=== PATIENT | male | born 1935 | race Caucasian/White ===

== ENCOUNTER → 2016-12-08 | Outpatient (CLI) | payer MEDICARE, BC ==
[2016-12-08 15:23] LABS: CH 32.7; CHCM 34.9; HCT 42.7 % (39.0-53.0); HDW 3.01; HGB 14.6 gm/dL (13.0-17.5); MCH 32.3 pg (25.0-35.0); MCHC 34.2 g/dL (31.0-37.0); MCV 94.4 fL (80.0-100.0); Mean Platelet Volume 6.4; RBC 4.52 m/uL (4.30-5.90); RDW 13.5 % (11.5-15.5); WBC 8.2 k/uL (3.8-10.6)
[2016-12-08 15:38] LABS: Anion Gap 10 mmol/L; Blood Urea Nitrogen 23 mg/dL (9-20); Carbon Dioxide 24 mmol/L (22-30); Chloride 107 mmol/L (98-107); Non-African American GFR(MDRD) >60 (>60 ml/min/1.73 sqM); Potassium 4.1 mmol/L (3.5-5.1); Sodium 141 mmol/L (137-145)
== END | disposition home or self-care (01) ==
LOC: LABPAT 14:31
PROVIDERS: ATTEND Internal Medicine Interventional Cardiology
DX: Z01.812 Encounter for preprocedural laboratory examination (principal); I25.10 Atherosclerotic heart disease of native coronary artery without angina pectoris
CPT/HCPCS: 80051; 82565; 84520; 85027

== ENCOUNTER 2016-12-21 06:25 | Day surgery (SDC) | payer MEDICARE, BC ==
[2016-12-17 09:47] VITALS: BMI 33.6
[~2016-12-21 06:25] MED LIST: ALPRAZolam 0.25 MG TAB PO PRN; ALPRAZolam 0.5 MG TAB PO PRN; ASPIRIN 325 MG TAB PO STA; ATORVASTATIN 80 MG TAB PO STA; NITROGLYCERIN SL TABS 0.4 MG TAB SUBLINGUAL PRN; SODIUM CHLORIDE 0.9% 1,000 ML in EMPTY BAG 1 BAG IV ONE
[2016-12-21 07:14] VITALS: RESP 16; TEMP 98.4
[2016-12-21 07:17] LABS: Glucose,Whole Blood 163 mg/dL (75-99)
[2016-12-21] MEDS ORDERED: MIDAZOLAM 2 MG/2 ML VIAL IVP ONE (07:56)
[2016-12-21] MEDS ORDERED: diphenhydrAMINE 50 MG/ML 1 ML VIAL IVP ONE (07:56)
[2016-12-21] MEDS ORDERED: LIDOCAINE 2% INJ 20 MG/ML SQ ONE (07:59)
[2016-12-21] MEDS ORDERED: VERAPAMIL SYRINGE (5 MG/10 ML) INTRAARTER ONE (08:00)
[2016-12-21] MEDS ORDERED: HEPARIN SODIUM 1,000 UNIT/ML VIAL IV ONE (08:11)
[2016-12-21] MEDS ORDERED: IOHEXOL 350 MG/ML 125ML BOTTLE INJ ONE (08:24)
[2016-12-21] MEDS ORDERED: RX INFO: IV CONTRAST WAS GIVEN 1 EACH MISC MISCELLANE PRN (08:33)
[2016-12-21] MEDS ORDERED: MELOXICAM 7.5 MG TAB PO PRN (08:34)
[2016-12-21] MEDS ORDERED: LORATADINE 10 MG TAB PO PRN (08:34)
[2016-12-21] MEDS ORDERED: MECLIZINE 25 MG TAB PO PRN (08:34)
[2016-12-21] MEDS ORDERED: SODIUM CHLORIDE 0.9% 1,000 ML IV SCH (08:45)
[2016-12-21] MEDS ORDERED: LISINOPRIL 10 MG TAB PO SCH (09:00)
[2016-12-21] MEDS ORDERED: GLUCOSAMINE PO SCH (09:00)
[2016-12-21] MEDS ORDERED: OMEGA PO SCH (09:00)
[2016-12-21] MEDS ORDERED: DHA PO SCH (09:00)
[2016-12-21] MEDS ORDERED: NON-FORMULARY DRUG (Tolterodine Tartrate [Detrol La] 4 MG) PO SCH (09:00)
[2016-12-21] MEDS ORDERED: GLIMEPIRIDE 2 MG TAB PO ONE (09:00)
[2016-12-21] MEDS ORDERED: EPA PO SCH (09:00)
[2016-12-21] MEDS ORDERED: LEVOTHYROXINE 100 MCG TAB PO SCH (09:00)
[2016-12-21] MEDS ORDERED: ASPIRIN 81 MG CHEW PO SCH (09:00)
[2016-12-21] MEDS ORDERED: MULTIVITAMIN PO SCH (09:00)
[2016-12-21] MEDS ORDERED: FISH OIL PO SCH (09:00)
[2016-12-21] MEDS ORDERED: ATENOLOL 25 MG TAB PO SCH (09:00)
[2016-12-21 09:10] LABS: Glucose,Whole Blood 146 mg/dL (75-99)
[2016-12-21 13:15] VITALS: BP 147/81; PULSE 62
[2016-12-21] MEDS ORDERED: TAMSULOSIN 0.4 MG CAP.ER.24H PO SCH (21:00)
[2016-12-21] MEDS ORDERED: ATORVASTATIN 80 MG TAB PO SCH (21:00)
[2016-12-22] MEDS ORDERED: GLIMEPIRIDE 2 MG TAB PO SCH (09:00)
--- NOTE | 2016-12-23 06:56 | PCN ---
CARDIAC CATHETERIZATION Mr. Amin is a 81-year-old male with known history of hypertension, hyperlipidemia, diabetes mellitus who has been complaining of episode of progressive dyspnea, had a myocardial perfusion imaging that revealed evidence of inducible ischemia. He was evaluated by Dr. Pineda and recommendation was made regarding cardiac catheterization. The procedure as well a the risks and the complications were discussed with the patient who is in full understanding and agreement. PROCEDURE: The patient was brought to the public works laborer in a fasting semi-sedated state after receiving fentanyl and Benadryl and achieved moderate conscious sedated state. Using Xylocaine anesthesia and Seldinger technique, a 6 [place] sheath was introduced in the right radial artery. Selective right and left coronary angiography performed using 5 [place], 3-1/2 Bend right Eugene catheter and a 6 [place] Robert catheter. Images of the coronary arteries were obtained. Following that, a 6 [place] tight pigtail catheter was introduced in the left ventricle and a 30-degree JOSE view of the left ventricle was obtained. Following that, catheter and sheath were removed. Hemostasis was obtained with deployment of a TR band. There was no immediate complication. The patient was returned to his room in stable condition. Of note, the patient received 5000 units of intravenous heparin as well as intra-arterial verapamil. The left main was subselectively cannulated. FINDINGS: FLUOROSCOPY: There is calcification involving the left main as well as the LAD and left circumflex. LEFT MAIN: This is a short size vessel, bifurcating into left circumflex and left anterior descending artery. Left main coronary artery is without any significant obstructive disease. LEFT ANTERIOR DESCENDING ARTERY: This is a large size vessel reaching towards the apex with a wrap around apex segment giving rise to a diagonal branch. The left anterior descending artery has 10% to 20% plaque proximally without any evidence of high grade stenosis. LEFT CIRCUMFLEX: This is a nondominant vessel giving rise to 2 obtuse marginal branches. The left circumflex proximally has a 10% to 20% plaque. The rest of the vessel has no high grade stenosis. RIGHT CORONARY ARTERY: This is a dominant moderate to small caliber size vessel giving rise to PDA distally. The right coronary artery and its branches have no evidence of obstructive coronary artery disease. LEFT VENTRICULOGRAM: Left ventriculogram was performed in 30-degree JOSE view and revealed normal left ventricular size and systolic function. Ejection fraction is 60% with no significant mitral regurgitation. HEMODYNAMICS: There was no gradient across the aortic valve. The left ventricular end-diastolic pressure was 20 mmHg. CONCLUSION: 1. Calcified left main, left anterior descending artery and proximal left circumflex. 2. Mild disease in the left anterior descending artery and left circumflex. 3. Normal left ventricular systolic size and systolic function. RECOMMENDATIONS: In view of finding anatomy, I recommended continuing medical therapy with aggressive coronary risk modification has been initiated. Those findings and recommendations were discussed with the patient and his family and a full understanding agreement. Duration of procedure is 29 minutes. MTDD
--- NOTE | 2016-12-23 07:03 | MISC ---
LETTER Dear Dr. Rodriguez: I had the opportunity to perform cardiac catheterization on Mr. Amin at [facility] on the 21 of December and a full copy of the procedure note will be forwarded to you. In brief, he was found to have mild coronary artery disease with preserved systolic function and based on those findings, I recommended continued medical therapy with aggressive coronary risk modification to be initiated and thank you again for allowing me the opportunity to participate in his care. Please feel free to call for any questions. Sincerely yours, MD INGRID Rabago
== END 2016-12-21 13:26 | disposition home or self-care (01) ==
LOC: CATHCVL 06:25
PROVIDERS: ATTEND Internal Medicine Interventional Cardiology
DX: I25.10 Atherosclerotic heart disease of native coronary artery without angina pectoris (principal); R94.39 Abnormal result of other cardiovascular function study; R06.02 Shortness of breath; I10 Essential (primary) hypertension; E78.5 Hyperlipidemia, unspecified; E11.9 Type 2 diabetes mellitus without complications; G47.33 Obstructive sleep apnea (adult) (pediatric); Z79.84 Long term (current) use of oral hypoglycemic drugs; Z79.82 Long term (current) use of aspirin; Z79.899 Other long term (current) drug therapy; Z88.5 Allergy status to narcotic agent; Z87.891 Personal history of nicotine dependence; E78.00 Pure hypercholesterolemia, unspecified
CPT/HCPCS: 93458; 99152; 99153; C1769 ×2; C1894; J2001; J2250; J1200; J1644; Q9967

== ENCOUNTER 2018-02-07 10:48 | Emergency (ER) | payer MEDICARE, BC ==
[2018-02-07 11:29] VITALS: TEMP 98
[2018-02-07] MEDS ORDERED: ACETAMINOPHEN TAB 500 MG TAB PO STA (11:46)
--- NOTE | 2018-02-07 12:06 | XR ---
EXAMINATION TYPE: XR knee complete LT DATE OF EXAM: 02/07/2018 CLINICAL HISTORY: Acute on the left knee pain TECHNIQUE: Three views of the left knee are obtained. COMPARISON: None. FINDINGS: There is no acute fracture/dislocation evident in left knee. Metallic hardware from total left knee arthroplasty is identified. Alignment is felt satisfactory. Some patellofemoral joint space narrowing is seen with superior and inferior marginal osteophytes. The overlying soft tissue appears unremarkable. IMPRESSION: As above.
--- NOTE | 2018-02-07 12:28 | ED ---
General Adult HPI - General Source: patient Mode of arrival: wheelchair Limitations: no limitations <Bret Downs - Last Filed: 02/07/18 12:28> <Everette Read - Last Filed: 02/07/18 12:53> - General Chief complaint: Extremity Problem,Nontraumatic Stated complaint: left leg & knee pain Time Seen by Provider: 02/07/18 11:26 - History of Present Illness Initial comments: 82-year-old male presents to the emergency department for a chief complaint of left knee pain 3 weeks. Patient states he does have a history of the knee replacement about 20 years ago. Patient denies any injury to the left knee in the past 3 weeks. Patient states he is able to walk on it but it is somewhat painful. Patient states he has not been taking Motrin or Tylenol because a previous doctor had told him not to take these medications. This was because patient was having neck pain and was overusing the neck due to effectiveness of pain medications. Patient is not experiencing neck pain at this time. Patient denies any pain in the calf. Patient denies any history of blood clots. Patient has no other complaints at this time including fever, shortness of breath, chest pain, abdominal pain, nausea or vomiting, headache, or visual changes. (Bret Downs) - Related Data Home Medications Medication Instructions Recorded Confirmed Aspirin 81 mg PO BID 09/17/15 02/07/18 Glimepiride [Amaryl] 2 mg PO QAM 09/17/15 02/07/18 Levothyroxine Sodium [Synthroid] 100 mcg PO QAM 09/17/15 02/07/18 Lisinopril [Zestril] 20 mg PO DAILY 09/17/15 02/07/18 Meloxicam 15 mg PO DAILY PRN 09/17/15 02/07/18 Tamsulosin [Flomax] 0.8 mg PO HS 09/17/15 02/07/18 Meclizine [Antivert] 25 mg PO TID PRN 12/17/16 02/07/18 Multivitamin [Multiple Vitamins] 1 each PO DAILY 12/17/16 02/07/18 Albuterol Inhaler [Ventolin Hfa 1 - 2 puff INHALATION RT-Q6H PRN 02/07/18 Inhaler] Atorvastatin Calcium [Lipitor] 40 mg PO HS 02/07/18 02/07/18 Baclofen [Lioresal] 10 mg PO DAILY 02/07/18 02/07/18 Baclofen [Lioresal] 20 mg PO HS 02/07/18 02/07/18 Flex-A-Min 1 tab PO DAILY 02/07/18 02/07/18 Ibuprofen [Motrin Ib] 400 mg PO Q6HR PRN 02/07/18 02/07/18 Lidocaine HCl [Aspercreme] 1 applic TOPICAL DAILY PRN 02/07/18 02/07/18 Metoprolol Succinate [Toprol XL] 50 mg PO DAILY 02/07/18 02/07/18 Allergies Allergy/AdvReac Type Severity Reaction Status Date / Time morphine AdvReac Nausea & Verified 02/07/18 12:17 Vomiting Review of Systems ROS Other: All systems not noted in ROS Statement are negative. <Bret Downs - Last Filed: 02/07/18 12:28> ROS Other: All systems not noted in ROS Statement are negative. <Everette Read - Last Filed: 02/07/18 12:53> ROS Statement: Those systems with pertinent positive or pertinent negative responses have been documented in the HPI. Past Medical History Past Medical History: Cancer, Diabetes Mellitus, Deep Vein Thrombosis (DVT), GERD/Reflux, Hearing Disorder / Deafness, Hyperlipidemia, Hypertension, Osteoarthritis (OA), Sleep Apnea/CPAP/BIPAP, Thyroid Disorder, Vascular Disorder Additional Past Medical History / Comment(s): Hx prostate cancer, emphysemia, sob, seasonal allergies, "blood clot in right leg after a fall 2 yrs ago that was lanced." "Wears knee high TEDS most days." History of Any Multi-Drug Resistant Organisms: None Reported Past Surgical History: Heart Catheterization, Joint Replacement Additional Past Surgical History / Comment(s): Bilateral knee replacements, spleen, prostate, bilateral vein stripping in legs. Past Anesthesia/Blood Transfusion Reactions: Postoperative Nausea & Vomiting ( PONV) Past Psychological History: No Psychological Hx Reported Smoking Status: Never smoker Past Alcohol Use History: None Reported Past Drug Use History: None Reported - Past Family History Mother Family Medical History: Unable to Obtain Father Family Medical History: Unable to Obtain <Bret Downs - Last Filed: 02/07/18 12:28> General Exam Limitations: no limitations General appearance: alert, in no apparent distress Head exam: Present: atraumatic, normocephalic, normal inspection Eye exam: Present: normal appearance. Absent: scleral icterus, conjunctival injection ENT exam: Present: normal exam, mucous membranes moist Neck exam: Present: normal inspection. Absent: tenderness, meningismus, lymphadenopathy Respiratory exam: Present: normal lung sounds bilaterally. Absent: respiratory distress, wheezes, rales, rhonchi, stridor Cardiovascular Exam: Present: regular rate, normal rhythm, normal heart sounds. Absent: systolic murmur, diastolic murmur, rubs, gallop, clicks Extremities exam: Present: full ROM (Full range of motion of the left knee including flexion and extension.), tenderness (Patient has mild tenderness over the anterior left knee.), normal capillary refill (Capillary refill less than 2 seconds and pedal and PT pulses 2+.), other (There is an old healed scar over the left knee. Sensation intact in the left lower extremity.). Absent: pedal edema, joint swelling, calf tenderness (No tenderness in the left calf. Negative Homans sign. No erythema, edema, or increased warmth in the left calf. ) Neurological exam: Present: alert, oriented X3, CN II-XII intact Psychiatric exam: Present: normal affect, normal mood <Bret Downs - Last Filed: 02/07/18 12:28> Course <Bret Downs - Last Filed: 02/07/18 12:28> <Everette Read - Last Filed: 02/07/18 12:53> Vital Signs 02/07/18 02/07/18 11:26 12:41 Temperature 98 F 98 F Pulse Rate 78 71 Respiratory 18 16 Rate Blood Pressure 136/86 132/80 O2 Sat by Pulse 92 L 98 Oximetry - Reevaluation(s) Reevaluation #1: 02/07/18 12:53 PA supervision: I personally saw and examined the patient. I have reviewed and agree with the PE findings including all diagnostic interpretations and treatment plans is written unless otherwise stated. (Everette Read) Medical Decision Making <Bret Downs - Last Filed: 02/07/18 12:28> <Everette Read - Last Filed: 02/07/18 12:53> - Medical Decision Making 82-year-old male presents to the emergency department for chief complaint of left knee pain 3 weeks. Patient has a history of knee replacement about 20 years ago. Patient states he has extensive history of osteoarthritis. Patient has not been taking anything for pain. Patient is able to walk on it but is limping somewhat. On exam patient has full range of motion of the left knee, no increased warmth or erythema to the left knee. No evidence of infection at this time. Neurovascular intact in the left lower extremity. Patient was given Tylenol and ice in the emergency department which did help with his pain. Patient is likely experiencing chronic changes in the left knee causing the pain. He is to follow-up with orthopedics in one to 2 days. I did give him his previous orthopedic doctor's number as well as additional on-call orthopedist's. He will take Tylenol for pain but will clear this with his primary care provider first. He will return to the emergency department if he has any worsening symptoms. Dr Read also saw this patient. (Bret Downs) Disposition Is patient prescribed a controlled substance at d/c from ED?: No Time of Disposition: 12:26 <Bret Downs - Last Filed: 02/07/18 12:28> <Everette Read - Last Filed: 02/07/18 12:53> Clinical Impression: Knee pain, left Disposition: HOME SELF-CARE Condition: Good Instructions: Knee Pain (ED), Arthralgia (ED) Additional Instructions: Please take tylenol over the counter for pain. Please rest, ice, and elevate the left knee. Follow up with orthopedics in 1-2 days. Return to the emergency department if you have any worsening symptoms. Referrals: Brianne Rodriguez III, MD [Primary Care Provider] - 1-2 days Chilo Amador MD [REFERRING] - 1-2 days Nahun Jo DO [Doctor of Osteopathic Medicine] - 1-2 days Addendum entered and electronically signed by Bret Downs, PAStevenC 02/07/18 12 :36: X-ray of the left knee shows no acute fracture or dislocation evident. Metallic hardware from total left knee arthroplasty is identified. Alignment is satisfactory. Patellofemoral joint space narrowing
[2018-02-07 12:42] VITALS: BP 132/80; PULSE 71; RESP 16
== END 2018-02-07 12:41 | disposition home or self-care (01) ==
LOC: EC 10:48
DX: M25.562 Pain in left knee (principal); E11.9 Type 2 diabetes mellitus without complications; E78.5 Hyperlipidemia, unspecified; I10 Essential (primary) hypertension; K21.9 Gastro-esophageal reflux disease without esophagitis; M19.90 Unspecified osteoarthritis, unspecified site; G47.30 Sleep apnea, unspecified; Z99.89 Dependence on other enabling machines and devices; E07.9 Disorder of thyroid, unspecified; H91.90 Unspecified hearing loss, unspecified ear; Z86.718 Personal history of other venous thrombosis and embolism; Z85.46 Personal history of malignant neoplasm of prostate; Z79.82 Long term (current) use of aspirin; Z79.1 Long term (current) use of non-steroidal anti-inflammatories (NSAID); Z79.84 Long term (current) use of oral hypoglycemic drugs; Z79.899 Other long term (current) drug therapy; Z88.5 Allergy status to narcotic agent; Z96.653 Presence of artificial knee joint, bilateral; Z95.818 Presence of other cardiac implants and grafts
CPT/HCPCS: 99283

== ENCOUNTER 2018-10-12 15:41 | Emergency (ER) | payer MEDICARE, BC ==
[2018-10-12 16:10] VITALS: RESP 18
--- NOTE | 2018-10-12 16:29 | ED ---
Male Urogenital HPI - General Chief complaint: Urogenital Stated complaint: unable to urinate post catheter Time Seen by Provider: 10/12/18 16:15 Source: patient Mode of arrival: ambulatory Limitations: no limitations - History of Present Illness Initial comments: 83-year-old male presenting today for chief complaint of inability to urinate. Patient states he has had prostate cancer in the past. Patient states he felt a small amount of active cancer as well as prostate scarring. Patient states he had trouble starting the stream and he presented to Dr. Goodman a few weeks prior. He states he had a recent procedure to break up the scar tissue preventing him proper urination and had the catheter removed yesterday. Patient states he was able to urinate spontaneously however around 2 AM this morning he noticed every time he tried to urinate he was unable to. Patient denies any abdominal pain or discomfort denies any back or flank pain. Patient denies fever or chills night sweats. When patient was unable to urinate later this afternoon he presented to the emergency department for further evaluation. Upon arrival patient denies pain he appears well and nontoxic. Remaining review of system negative, Patient denies any recent shortness of breath, chest pain, back pain, abdominal pain, nausea or vomiting, numbness or tingling, dysuria or hematuria, constipation or diarrhea, headaches or visual changes, or any other complaints. - Related Data Home Medications Medication Instructions Recorded Confirmed Aspirin 162 mg PO DAILY 09/17/15 10/12/18 Glimepiride [Amaryl] 2 mg PO BID 09/17/15 10/12/18 Levothyroxine Sodium [Synthroid] 100 mcg PO DAILY 09/17/15 10/12/18 Lisinopril [Zestril] 20 mg PO DAILY 09/17/15 10/12/18 Meloxicam 15 mg PO DAILY 09/17/15 10/12/18 Tamsulosin [Flomax] 0.8 mg PO HS 09/17/15 10/12/18 Meclizine [Antivert] 25 mg PO TID PRN 12/17/16 10/12/18 Multivitamin [Multiple Vitamins] 1 tab PO DAILY 12/17/16 10/12/18 Albuterol Inhaler [Ventolin Hfa 1 - 2 puff INHALATION RT-Q6H PRN 02/07/18 10/12/18 Inhaler] Atorvastatin Calcium [Lipitor] 40 mg PO HS 02/07/18 10/12/18 Baclofen [Lioresal] 10 mg PO DAILY 02/07/18 10/12/18 Baclofen [Lioresal] 20 mg PO HS 02/07/18 10/12/18 Flex-A-Min 1 tab PO DAILY 02/07/18 10/12/18 Metoprolol Succinate [Toprol XL] 50 mg PO DAILY 02/07/18 10/12/18 Bicalutamide [Casodex] 50 mg PO DAILY 10/12/18 10/12/18 Gabapentin [Neurontin] 300 mg PO BID 10/12/18 10/12/18 sitaGLIPtin [Januvia] 100 mg PO DAILY 10/12/18 10/12/18 Allergies Allergy/AdvReac Type Severity Reaction Status Date / Time morphine AdvReac Nausea & Verified 10/12/18 16:47 Vomiting Review of Systems ROS Statement: Those systems with pertinent positive or pertinent negative responses have been documented in the HPI. ROS Other: All systems not noted in ROS Statement are negative. Past Medical History Past Medical History: Cancer, Diabetes Mellitus, Deep Vein Thrombosis (DVT), GERD/Reflux, Hearing Disorder / Deafness, Hyperlipidemia, Hypertension, Osteoarthritis (OA), Sleep Apnea/CPAP/BIPAP, Thyroid Disorder, Vascular Disorder Additional Past Medical History / Comment(s): Hx prostate cancer, emphysemia, sob, seasonal allergies, "blood clot in right leg after a fall 2 yrs ago that was lanced." "Wears knee high TEDS most days." History of Any Multi-Drug Resistant Organisms: None Reported Past Surgical History: Heart Catheterization, Joint Replacement Additional Past Surgical History / Comment(s): Bilateral knee replacements, spleen, prostate, bilateral vein stripping in legs. Past Anesthesia/Blood Transfusion Reactions: Postoperative Nausea & Vomiting (PONV) Past Psychological History: No Psychological Hx Reported Smoking Status: Never smoker Past Alcohol Use History: None Reported Past Drug Use History: None Reported - Past Family History Mother Family Medical History: Unable to Obtain Father Family Medical History: Unable to Obtain General Exam - General Exam Comments Initial Comments: General: The patient is awake and alert, in no distress, and does not appear acutely ill. Eye: Pupils are equal, round and reactive to light, extra-ocular movements are intact. No nystagmus. There is normal conjunctiva bilaterally. No signs of icterus. Ears, nose, mouth and throat: There are moist mucous membranes and no oral lesions. Neck: The neck is supple, there is no tenderness or JVD. Cardiovascular: There is a regular rate and rhythm. No murmur, rub or gallop is appreciated. Respiratory: Lungs are clear to auscultation, respirations are non-labored, breath sounds are equal. No wheezes, stridor, rales, or rhonchi. Gastrointestinal: Soft, non-distended, non-tender abdomen without masses or organomegaly noted. There is no rebound or guarding present. No CVA tenderness. Bowel sounds are unremarkable. Musculoskeletal: Normal ROM, no tenderness. Strength 5/5. Sensation intact. Radial pulses equal bilaterally 2+. Neurological: A&O x 3. CN II-XII intact, There are no obvious motor or sensory deficits. Coordination appears grossly intact. Speech is normal. Skin: Skin is warm and dry and no rashes or lesions are noted. Psychiatric: Cooperative, appropriate mood & affect, normal judgment. Limitations: no limitations Course Vital Signs 10/12/18 16:09 Temperature 99.1 F Pulse Rate 90 Respiratory 18 Rate Blood Pressure 123/72 O2 Sat by Pulse 92 L Oximetry Medical Decision Making - Medical Decision Making Post residual void 500 mL. Patient has known prostate scarring. Catheter was placed. Urine light yellow no sediment, gross hematuria. Patient has no complaints no abdominal pain. Patient will be discharged with Das catheter and follow-up with Dr. Goodman urology. Discussed case attempt by her doctor Dia agreeable patient care plan and discharge. Patient is agreeable discharge, and aware of catheter care. Disposition Clinical Impression: Urinary retention Disposition: HOME SELF-CARE Condition: Good Instructions (If sedation given, give patient instructions): Urinary Retention in Men (ED) Additional Instructions: Please use medication as discussed. Please follow-up with Dr. Goodman in the next 2-3 days. Please return to emergency room if the symptoms increase or worsen or for any other concerns. Is patient prescribed a controlled substance at d/c from ED?: No Referrals: Brianne Rodriguez III, MD [Primary Care Provider] - 1-2 days Paul Yeboah MD [STAFF PHYSICIAN] - 1-2 days Time of Disposition: 18:09
[2018-10-12 19:29] VITALS: BP 100/68; PULSE 92; TEMP 98.6
== END 2018-10-12 18:30 | disposition home or self-care (01) ==
LOC: EC 15:41
DX: R33.9 Retention of urine, unspecified (principal); E11.9 Type 2 diabetes mellitus without complications; E78.5 Hyperlipidemia, unspecified; I10 Essential (primary) hypertension; E07.9 Disorder of thyroid, unspecified; M19.90 Unspecified osteoarthritis, unspecified site; G47.30 Sleep apnea, unspecified; Z99.89 Dependence on other enabling machines and devices; Z85.46 Personal history of malignant neoplasm of prostate; Z95.818 Presence of other cardiac implants and grafts; Z96.653 Presence of artificial knee joint, bilateral; Z79.82 Long term (current) use of aspirin; Z79.84 Long term (current) use of oral hypoglycemic drugs; Z79.890 Hormone replacement therapy; Z79.1 Long term (current) use of non-steroidal anti-inflammatories (NSAID); Z79.899 Other long term (current) drug therapy; Z88.5 Allergy status to narcotic agent
CPT/HCPCS: 51702; 51798; 99283

== ENCOUNTER → 2019-05-30 | Outpatient (CLI) | payer MEDICARE, BC ==
[2019-05-30 14:20] LABS: Basophils % (A) 1 %; Eosinophils # (A) 0.4 k/uL (0-0.7); Eosinophils % (A) 5 %; HCT 42.7 % (39.0-53.0); HGB 14.2 gm/dL (13.0-17.5); Lymphocytes # (A) 2.1 k/uL (1.0-4.8); Lymphocytes % (A) 27 %; MCH 32.4 pg (25.0-35.0); MCHC 33.3 g/dL (31.0-37.0); MCV 97.3 fL (80.0-100.0); Mean Platelet Volume 6.1; Monocytes # (A) 0.5 k/uL (0-1.0); Monocytes % (A) 6 %; Neutrophils # (A) 4.5 k/uL (1.3-7.7); Neutrophils % (A) 57 %; Platelet Count 249 k/uL (150-450); RBC 4.39 m/uL (4.30-5.90); RDW 12.7 % (11.5-15.5); WBC 7.8 k/uL (3.8-10.6)
[2019-05-30 14:34] LABS: Calcium 9.5 mg/dL (8.4-10.2); Potassium 4.4 mmol/L (3.5-5.1); Total Bilirubin 0.7 mg/dL (0.2-1.3); Total Protein 7.1 g/dL (6.3-8.2)
== END ==
LOC: LABPAT 13:28
PROVIDERS: ATTEND Urology
DX: Z01.812 Encounter for preprocedural laboratory examination (principal); N39.3 Stress incontinence (female) (male)
CPT/HCPCS: 80053; 85025; 87086

== ENCOUNTER 2019-06-06 08:25 | Day surgery (SDC) | payer MEDICARE, BC ==
[2019-06-04 15:31] VITALS: BMI 35.0
--- NOTE | 2019-06-05 20:03 | P.GSHP ---
History of Present Illness H&P Date: 06/05/19 83 yo male comes for a male urethral sphincter for kim He had an open radical prostatectomy in 2004 [id number] He had a recurrence treated with ebrt [id number] He subsequently had had lhrh therapy on an intermittent basis.. Over the last few years he has developed increasing incontinence that has failed kegal exercises, anti cholinergics, muscarinics He underwent an evaluation that identified 6ppd kim He comes for a gu sphincter The risks and complications have been discussed inluding injury to the urethra, failure, infection apin and bleeding. - Constitutional Constitutional: Denies chills, Denies fever - EENT Eyes: denies blurred vision, denies pain Ears, nose, mouth and throat: Denies headache, Denies sore throat - Cardiovascular Cardiovascular: Denies chest pain, Denies shortness of breath - Respiratory Respiratory: Denies cough, Denies 7 - Gastrointestinal Gastrointestinal: Denies abdominal pain, Denies diarrhea, Denies nausea, Denies vomiting - Genitourinary (Female) Genitourinary: Denies dysuria, Denies hematuria - Genitourinary (Male) Genitourinary: Denies dysuria, Denies hematuria - Musculoskeletal Musculoskeletal: Denies myalgias - Integumentary Integumentary: Denies pruritus, Denies rash - Neurological Neurological: Denies numbness, Denies weakness - Psychiatric Psychiatric: Denies anxiety, Denies depression - Endocrine Endocrine: Denies fatigue, Denies weight change Past Medical History Past Medical History: Cancer, Diabetes Mellitus, Deep Vein Thrombosis (DVT), GERD/Reflux, Hearing Disorder / Deafness, Hyperlipidemia, Hypertension, Osteoarthritis (OA), Sleep Apnea/CPAP/BIPAP, Thyroid Disorder, Vascular Disorder Additional Past Medical History / Comment(s): urinary incontinence, left wrist pre CA cells removed, has scab, Hx prostate cancer, radiation in 2018, sob, seasonal allergies, "blood clot in right leg after a fall 2 yrs ago that was lanced." "Wears knee high TEDS most days." History of Any Multi-Drug Resistant Organisms: None Reported Past Surgical History: Heart Catheterization, Joint Replacement Additional Past Surgical History / Comment(s): Bilateral knee replacements, spleen, prostate, bilateral vein stripping in legs. Past Anesthesia/Blood Transfusion Reactions: Postoperative Nausea & Vomiting (PONV) Smoking Status: Former smoker - Past Family History Mother Family Medical History: Unable to Obtain Father Family Medical History: Unable to Obtain Medications and Allergies Home Medications Medication Instructions Recorded Confirmed Type Aspirin 162 mg PO DAILY 09/17/15 06/04/19 History Glimepiride [Amaryl] 2 mg PO BID 09/17/15 06/04/19 History Levothyroxine Sodium [Synthroid] 100 mcg PO DAILY 09/17/15 06/04/19 History Lisinopril [Zestril] 20 mg PO QAM 09/17/15 06/04/19 History Meloxicam 15 mg PO DAILY PRN 09/17/15 06/04/19 History Meclizine [Antivert] 25 mg PO TID PRN 12/17/16 06/04/19 History Multivitamin [Multiple Vitamins] 1 tab PO DAILY 12/17/16 06/04/19 History Albuterol Inhaler [Ventolin Hfa 1 - 2 puff INHALATION RT-Q6H PRN 02/07/18 06/04/19 History Inhaler] Atorvastatin Calcium [Lipitor] 40 mg PO HS 02/07/18 06/04/19 History Flex-A-Min 1 tab PO DAILY 02/07/18 06/04/19 History Metoprolol Succinate [Toprol XL] 50 mg PO DAILY 02/07/18 06/04/19 History Bicalutamide [Casodex] 50 mg PO HS 10/12/18 06/04/19 History Gabapentin [Neurontin] 300 mg PO BID PRN 10/12/18 06/04/19 History sitaGLIPtin [Januvia] 100 mg PO DAILY 10/12/18 06/04/19 History Butalb/Acetaminophen/Caffeine 1 - 2 cap PO Q4HR PRN 06/04/19 06/04/19 History [Fioricet 50-300-40 mg Capsule] Allergies Allergy/AdvReac Type Severity Reaction Status Date / Time adhesive Allergy "peels Verified 06/04/19 15: skin" morphine AdvReac Nausea & Verified 06/04/19 15:19 Vomiting Surgical - Exam - General well developed, well nourished, no distress - Eyes normal ocular movement - ENT no hearing loss - Neck trachea midline - Respiratory normal expansion, normal respiratory effort - Cardiovascular Rhythm: regular - Abdomen Abdomen: soft, non tender - Genitourinary kim normal penis with no external lesions, testicles present - Rectum no palpable prostate - Integumentary no rash, no growths - Neurologic normal coordination, normal sensation - Musculoskeletal normal gait, normal posture - Psychiatric oriented to time, oriented to person, oriented to place, speech is normal, memory intact Assessment and Plan Assessment: Impression: KIM, prostate cancer Plan: Insertion of male urethral sphincter
[~2019-06-06 08:25] MED LIST changes: -ALPRAZolam 0.25 MG TAB PO PRN; -ALPRAZolam 0.5 MG TAB PO PRN; +AMPICILLIN 1,000 MG in SODIUM CHLORIDE 0.9% 50 ML IVPB ONE; -ASPIRIN 325 MG TAB PO STA; -ATORVASTATIN 80 MG TAB PO STA; +DEXAMETHASONE SOD PHOSPHATE 10 MG/ML 1 ML VIAL IV ONE; +GENTAMICIN 120 MG in SODIUM CHLORIDE 0.9% 100 ML IVPB ONE; +LIDOCAINE 1% 20 ML VIAL (10MG/ML) FOR IV START INTRADERMA PRN; +MIDAZOLAM 2 MG/2 ML VIAL IV PRN; -NITROGLYCERIN SL TABS 0.4 MG TAB SUBLINGUAL PRN; +ONDANSETRON 4 MG/2 ML VIAL IVP ONE; +SCOPOLAMINE 1.5MG/72HR PATCH TRANSDERM ONE; -SODIUM CHLORIDE 0.9% 1,000 ML in EMPTY BAG 1 BAG IV ONE
[2019-06-06] MEDS: LACTATED RINGERS 1,000 ML IV SCH (09:31)
[2019-06-06 09:45] LABS: Glucose,Whole Blood 133 mg/dL (75-99)
[2019-06-06] MEDS ORDERED: MIDAZOLAM 2 MG/2 ML VIAL ONE (09:47)
[2019-06-06] MEDS ORDERED: fentaNYL (PF) 50 MCG/ML 2 ML AMP ONE (09:47)
[2019-06-06] MEDS ORDERED: ePHEDrine SULFATE/0.9% NACL/PF 50 MG/5 ML SYRINGE IV ONE (09:47)
[2019-06-06] MEDS ORDERED: ROCURONIUM BROMIDE 10 MG/ML 10 ML VIAL IV ONE (09:47)
[2019-06-06] MEDS ORDERED: GLYCOPYRROLATE 0.2 MG/ML 2 ML VIAL ONE (09:47)
[2019-06-06] MEDS ORDERED: PROPOFOL 10 MG/ML 20 ML VIAL IV ONE (09:47)
[2019-06-06] MEDS ORDERED: SUCCINYLCHOLINE CHLORIDE 100 MG/5 ML SYR IV ONE (09:47)
[2019-06-06] MEDS ORDERED: NEOSTIGMINE 1 MG/ML 10 ML VIAL ONE (09:47)
[2019-06-06] MEDS ORDERED: LIDOCAINE 1% INJ 10MG/ML (20 ML MDV) ONE (09:47)
[2019-06-06] MEDS ORDERED: ceFAZolin 1,000 MG, GENTAMICIN 80 MG in SODIUM CHLORIDE 0.9% 1,000 ML IRRIGATION ONE (10:22)
[2019-06-06] MEDS ORDERED: LACTATED RINGERS 1,000 ML IV ONE (10:30)
[2019-06-06] MEDS ORDERED: MECLIZINE 25 MG TAB PO PRN (11:31)
[2019-06-06] MEDS ORDERED: ACETAMINOPHEN TAB 325 MG TAB PO PRN (11:32)
[2019-06-06] MEDS ORDERED: HYDROmorphone 2 MG/ML 1 ML SYRINGE IVP PRN (11:32)
[2019-06-06] MEDS ORDERED: Acetaminophen-Codeine 300-30mg TAB PO PRN (11:32)
[2019-06-06] MEDS ORDERED: ALPRAZolam 0.25 MG TAB PO PRN (11:32)
--- NOTE | 2019-06-06 11:40 | P.OP ---
Date of Procedure: 06/06/19 Preoperative Diagnosis: Stress urinary incontinence Postoperative Diagnosis: Same Procedure(s) Performed: Placement of male urethral sphincter, cystoscopy Anesthesia: ANGELINE Surgeon: Paul Yeboah Bass Fisher #1: Jean Bui Estimated Blood Loss (ml): 25 Pathology: none sent Condition: stable Disposition: PACU Indications for Procedure: The patient is an 83-year-old gentleman 15 years status post radical prostatectomy, 10 years status post radiation therapy for local recurrence. He is worsening stress urinary incontinence. He is failed exercise management medical management. He wears 6 pads per day. Treatment options were discussed and he comes for a male urethral sphincter. Description of Procedure: The patient is brought to the operating suite. He is given a general endotracheal anesthesia. He is prepped and draped sterilely. A midline scrotal incision is made. I dissect through the subcutaneous tissue. I used the ring retractor. I exposed the urethra. I dissect back to the bulbar urethra. I circumferentially dissect around the bulbar urethra making sure not to injure it. I then measured the circumferential diameter at 3.5 cm. This will be the size of the urethral sphincter. I then dissect up to the inguinal ring. It is too dense from the previous surgery and radiation to make a primary passage of the instrument in that fashion. I thus make a counter incisions suprapubically through the old midline incision. I marched down to the rectus fascia and open the rectus fascia. I tediously dissected through scar tissue and radiated tissue to create at pouch for the balloon reservoir for the sphincter. I then passed a hemostat through the inguinal ring into the scrotum. I then passed in retrograde fashion the same hemostat up into the suprapubic region. I then placed the prepped balloon into the prevesical space appeared to pass the tubing through the inguinal ring into the scrotum. The prevesical space is then closed with 2 interrupted 0 PDS. I then insufflated the reservoir with 25 mL of saline. I then place the sphincter around the urethra in the deep bulbar urethra. I bring the tubing up on the right side. I created a separate pouch for the pump in the right hemiscrotum. I then connected the tubing of the pump to the reservoir and the tubing of the pump to the sphincter. This is done with straight quick connects. I then inspect further bleeding there is no active bleeding. I irrigate thoroughly with antibiotic irrigation. The scrotum was closed with 2 layers of 3-0 chromic. The skin of the suprapubic region was closed with a 4-0 Monocryl. The patient is awake and returned recovery in good condition. Prior to closing the wound I performed cystoscopy to make sure there is no injury to the urethra and there is none in a make sure the sphincter collapse the urethra and it doesn't. I then deactivate the sphincter. The patient is awakened and returned recovery room good condition he tolerated procedure well. Blood loss is 25 mL.
[2019-06-06] MEDS: HYDROmorphone 0.5 MG/0.5 ML SYRINGE IVP PRN ×2 (11:56→12:17)
[2019-06-06 12:25] LABS: Glucose,Whole Blood 145 mg/dL (75-99)
[2019-06-06] MEDS: SODIUM CHLORIDE 0.45% 1,000 ML IV SCH (14:30)
[2019-06-06 17:12] LABS: Glucose,Whole Blood 197 mg/dL (75-99)
[2019-06-06] MEDS: INSULIN ASPART (NovoLOG) 100 UNIT/ML VIAL SQ SCH ×2 (17:13→19:37)
[2019-06-06 19:31] LABS: Glucose,Whole Blood 243 mg/dL (75-99)
[2019-06-06] MEDS: GLIMEPIRIDE 2 MG TAB PO SCH (19:31)
[2019-06-07 01:29] VITALS: RESP 16
[2019-06-07] MEDS: LACTATED RINGERS 1,000 ML IV SCH ×2 (05:19→05:22)
[2019-06-07] MEDS: SODIUM CHLORIDE 0.45% 1,000 ML IV SCH (05:24)
[2019-06-07] MEDS ORDERED: LEVOTHYROXINE 100 MCG TAB PO SCH (06:30)
[2019-06-07 07:13] LABS: Glucose,Whole Blood 246 mg/dL (75-99)
[2019-06-07] MEDS: GLIMEPIRIDE 2 MG TAB PO SCH (07:21)
[2019-06-07] MEDS: INSULIN ASPART (NovoLOG) 100 UNIT/ML VIAL SQ SCH ×2 (07:21→12:02)
[2019-06-07 08:46] VITALS: BP 159/80; PULSE 77; TEMP 98.6
[2019-06-07] MEDS ORDERED: METOPROLOL SUCCINATE (ER) 50 MG TAB.ER.24H PO SCH (09:00)
[2019-06-07] MEDS ORDERED: LINAGLIPTIN 5 MG TABLET PO SCH (09:00)
[2019-06-07] MEDS ORDERED: LEVOFLOXACIN 500 MG TAB PO SCH (09:00)
[2019-06-07] MEDS ORDERED: LISINOPRIL 20 MG TAB PO SCH (09:00)
--- NOTE | 2019-06-07 11:49 | P.DS ---
Providers Attending physician: Paul Yeboah Primary care physician: [facility] Course: The patient is 83. He underwent a radical prostatectomy 15 years ago. He had radiation therapy about 10 years ago. He has worsening stress incontinence failed medical and exercise management. He comes for a sphincter. This was performed yesterday 06/06/2019 without difficulty. He did well overnight. His wounds look good. He'll be discharged home today. He'll follow-up in the o ffice in one week. The sphincter is deactivated. He'll be activated in about 6 weeks. He'll be given a prescription of [place]. Postoperative instructions of been given. Condition is good. He understands his instructions. Patient Condition at Discharge: Good Plan - Discharge Summary Discharge Rx Participant: No New Discharge Prescriptions: New HYDROcodone/APAP 5-325MG [[place] 5-325] 1 tab PO Q4HR PRN #14 tab PRN Reason: Pain No Action Meloxicam 15 mg PO DAILY PRN PRN Reason: Pain Lisinopril [Zestril] 20 mg PO QAM Levothyroxine Sodium [Synthroid] 100 mcg PO DAILY Glimepiride [Amaryl] 2 mg PO BID Aspirin 162 mg PO DAILY Meclizine [Antivert] 25 mg PO TID PRN PRN Reason: vertigo Multivitamin [Multiple Vitamins] 1 tab PO DAILY Albuterol Inhaler [Ventolin Hfa Inhaler] 1 - 2 puff INHALATION RT-Q6H PRN PRN Reason: Shortness Of Breath Or Wheezing Atorvastatin Calcium [Lipitor] 40 mg PO HS Flex-A-Min 1 tab PO DAILY Metoprolol Succinate [Toprol XL] 50 mg PO DAILY Bicalutamide [Casodex] 50 mg PO HS sitaGLIPtin [Januvia] 100 mg PO DAILY Gabapentin [Neurontin] 300 mg PO BID PRN PRN Reason: Pain Butalb/Acetaminophen/Caffeine [Fioricet 50-300-40 mg Capsule] 1 - 2 cap PO Q4HR PRN PRN Reason: Migraine Headache Discharge Medication List Aspirin 162 mg PO DAILY 09/17/15 [History] Glimepiride [Amaryl] 2 mg PO BID 09/17/15 [History] Levothyroxine Sodium [Synthroid] 100 mcg PO DAILY 09/17/15 [History] Lisinopril [Zestril] 20 mg PO QAM 09/17/15 [History] Meloxicam 15 mg PO DAILY PRN 09/17/15 [History] Meclizine [Antivert] 25 mg PO TID PRN 12/17/16 [History] Multivitamin [Multiple Vitamins] 1 tab PO DAILY 12/17/16 [History] Albuterol Inhaler [Ventolin Hfa Inhaler] 1 - 2 puff INHALATION RT-Q6H PRN 02/07/18 [History] Atorvastatin Calcium [Lipitor] 40 mg PO HS 02/07/18 [History] Flex-A-Min 1 tab PO DAILY 02/07/18 [History] Metoprolol Succinate [Toprol XL] 50 mg PO DAILY 02/07/18 [History] Bicalutamide [Casodex] 50 mg PO HS 10/12/18 [History] Gabapentin [Neurontin] 300 mg PO BID PRN 10/12/18 [History] sitaGLIPtin [Januvia] 100 mg PO DAILY 10/12/18 [History] Butalb/Acetaminophen/Caffeine [Fioricet 50-300-40 mg Capsule] 1 - 2 cap PO Q4HR PRN 06/04/19 [History] HYDROcodone/APAP 5-325MG [[place] 5-325] 1 tab PO Q4HR PRN #14 tab 06/07/19 [Rx] Follow up Appointment(s)/Referral(s): Paul Yeboah MD [STAFF PHYSICIAN] - 1 Week Discharge Disposition: HOME SELF-CARE
[2019-06-07 11:56] LABS: Glucose,Whole Blood 210 mg/dL (75-99)
== END 2019-06-07 13:23 | disposition home or self-care (01) ==
LOC: OR 08:25 → 4SSUR 11:35 → OR 06-07 13:23
PROVIDERS: ATTEND Urology
DX: N39.3 Stress incontinence (female) (male) (principal); C61 Malignant neoplasm of prostate; E11.9 Type 2 diabetes mellitus without complications; K21.9 Gastro-esophageal reflux disease without esophagitis; E78.5 Hyperlipidemia, unspecified; I10 Essential (primary) hypertension; M19.90 Unspecified osteoarthritis, unspecified site; G47.33 Obstructive sleep apnea (adult) (pediatric); J30.2 Other seasonal allergic rhinitis; E07.9 Disorder of thyroid, unspecified; Z90.79 Acquired absence of other genital organ(s); Z85.828 Personal history of other malignant neoplasm of skin; Z86.718 Personal history of other venous thrombosis and embolism; Z86.69 Personal history of other diseases of the nervous system and sense organs; Z86.79 Personal history of other diseases of the circulatory system; Z92.3 Personal history of irradiation; Z91.81 History of falling; Z98.890 Other specified postprocedural states; Z96.653 Presence of artificial knee joint, bilateral; Z87.898 Personal history of other specified conditions; Z87.891 Personal history of nicotine dependence; Z79.82 Long term (current) use of aspirin; Z79.84 Long term (current) use of oral hypoglycemic drugs; Z79.890 Hormone replacement therapy; Z79.899 Other long term (current) drug therapy; Z91.048 Other nonmedicinal substance allergy status; Z88.5 Allergy status to narcotic agent; Z90.49 Acquired absence of other specified parts of digestive tract
CPT/HCPCS: 53445; C1815

== ENCOUNTER → 2023-09-08 | Outpatient (CLI) | payer MEDICARE, BC ==
--- NOTE | 2023-09-11 09:44 | PE ---
EXAMINATION TYPE: PET CT fusion skull to thigh DATE OF EXAM: 09/08/2023 CLINICAL INDICATION:Male, 87 years old with history of MALIGNANT NEOPLASM OF PROSTATE; TECHNIQUE: Following the intravenous administration of 5.41 mCi of Ga-68 Illuccix (PSMA), whole bod y images are performed from the skull base to the midthigh. Images are reviewed on the computer in t he coronal, axial, and sagittal planes. Reconstructed rotating images are created on independent wor kstation and reviewed on the computer. A non-contrast CT is performed in conjunction with the PET s can. CT DLP: 8:15 mGycm, Automated exposure control for dose reduction was used. COMPARISON: CT None, PET/CT None, FINDINGS: Mediastinal SUV mean is 2.1. Hepatic parenchyma SUV mean is 3.4. SKULL BASE AND NECK: * Abnormal conglomerate lymph nodes max SUV 162 of the right supraclavicular lymph nodes largest lym ph node measuring 17.6 mm. CHEST, MEDIASTINUM, AND HILAR REGION: Abnormal lymphadenopathy throughout the thorax. Examples include: * Subcarinal max SUV 65, 50 to 27 mm * Left perihilar max SUV 145, difficult to measure due to lack of IV contrast. * prevascular space max SUV 151, 24 mm in short axis. ABDOMEN AND PELVIS: * Abnormal and number lymph nodes throughout the retroperitoneum max SUV of the left renal sinus 156 .18. * Prostate gland appears surgically absent. Intense uptake within the urinary bladder no definitive uptake in the surgical bed in the pelvis. MUSCULOSKELETAL STRUCTURES: Scattered abnormal uptake throughout the osseous structures including the * Right skull base max SUV 8.6, * Scattered throughout the spine including T11 max SUV 47 * T6 posterior elements max SUV 65, * Left proximal femur max SUV 26.7, * Right rib [address]: Bilaterally aphakia. Atherosclerosis of the arterial vasculature. Scattered colonic diverti cula. Penile prosthesis reservoir in device present. Left bladder diverticula circumferential wall th ickening. IMPRESSION: Diffuse metastatic disease with abnormal uptake within retroperitoneal lymph nodes, mediastinal, righ t neck, and throughout the osseous structures.
== END | disposition home or self-care (01) ==
LOC: RADPETMAIN 13:27
PROVIDERS: ATTEND Family Medicine
DX: C61 Malignant neoplasm of prostate (principal); E11.9 Type 2 diabetes mellitus without complications; J43.9 Emphysema, unspecified; E03.9 Hypothyroidism, unspecified; I10 Essential (primary) hypertension; M12.9 Arthropathy, unspecified
CPT/HCPCS: 78815; A9596